=== PATIENT | male | born 1960 | race Caucasian/White ===

== ENCOUNTER → 2017-02-12 | Outpatient (CLI) | payer BC ==
--- NOTE | 2017-02-12 14:13 | PCVCIMAG ---
APPROVED REPORT Exam: Stress Echocardiogram Indication: CAD s/p CABG (01/02/17), Hyperlipidemia Patient Location: Echo lab Stress Nurse: Mary Ellen Porras RN Status: routine Ht: 5 ft 5 in HR: 75 bpm BP: 132/78 mmHg Rhythm: NSR Medical History Medical History: CAD s/p CABG Procedure The patient underwent an Exercise Stress Test using the Jose Protocol. Blood pressure, heart rate, and EKG were monitored. An Echocardiogram was performed by electrical controls technician in four stages in quad fashion. At peak stress, four selected images were obtained and placed side by side with resting images for comparison. Stress Test Details Stress Test: Exercise stress testing was performed using a Jose protocol. HR Resting HR: 75 bpmMax Heart Rate (APMHR): 162 bpm Max HR Achieved: 160 bpmTarget HR (85% APMHR): 137 bpm % of APMHR: 98 Recovery HR: 105 bpm BP Resting BP: 132/78 mmHg Max BP: 160/78 mmHg Recovery BP: 120/76 mmHg ECG Resting ECG: Sinus Rhythm Stress ECG: Sinus Rhythm/ peak exercise rhythm changed to what appears to be a BBB ST Change: Nondiagnostic Arrhythmia: SVT Recovery ECG: BBB continued for 20 min post exercise. Converted to sinus rhythm. Recovery Arrhythmia: BBB continued for 20 min post exercise. Converted to sinus rhythm. Clinical Reason for Termination: Arrhythmias Exercise duration: 12 min 57 sec Highest Stage Achieved: Stage 5: 5.0 mph at 18% grade. Exercise capacity: 17.00 METs Overall Exercise Capacity for Age: Normal Angina Score: None Stress ECG Conclusion The patient exercised according to the JOSE protocol for 12:57 min:s, achieving a work level of Max. METS: 17.00. The resting heart rate of 75 bpm katrin to a maximal heart rate of 162 bpm. This value represents 100% of the maximal, age-predicted heart rate. The resting blood pressure of 132/78 mmHg, katrin to a maximum blood pressure of 160/78 mmHg. The exercise test was stopped due to Arrhythmias. Pre-Stress Echo The resting Echocardiogram showed normal left ventricular contractility with an estimated Ejection Fraction of about >55%. Normal wall motion in all segments on baseline images. Post-Stress Echo The stress Echocardiogram showed normal left ventricular contractility with an estimated Ejection Fraction of about 60-65%. Normal augmentation of wall motion in all segments on post stress images. Conclusion Clinical Response: Non-ischemic Exercise Capacity: Average Stress ECG Response: Equivocal Stress Echo Images: Non-ischemic rate depend bundle No prior study available for comparison. Other Information Study Quality: Adequate <Conclusion> rate depend bundle
== END | disposition home or self-care (01) ==
LOC: PCVCIMAG 11:08
PROVIDERS: ATTEND Internal Medicine Cardiovascular Disease
DX: I45.4 Nonspecific intraventricular block (principal); I25.10 Atherosclerotic heart disease of native coronary artery without angina pectoris; E78.5 Hyperlipidemia, unspecified; Z95.1 Presence of aortocoronary bypass graft; Z79.82 Long term (current) use of aspirin
CPT/HCPCS: 93325; 93351

== ENCOUNTER → 2017-12-20 | Outpatient (CLI) | payer BC ==
--- NOTE | 2017-12-20 17:20 | PCVCIMAG ---
APPROVED REPORT Study performed: 12/20/2017 15:44:21 Exam: Stress Echocardiogram Indication: CAD s/p CABG, Chest pain Patient Location: Echo lab Stress Nurse: Mary Ellen Porras RN Room #: 1 Status: routine Ht: 5 ft 5 in HR: 63 bpm BP: 146/90 mmHg Rhythm: NSR Medical History Medical History: CAD s/p CABG Cardiac Risk Factors: HTN, Hyperlipidemia Previous Cardiac Procedures: CABG Pretest Chest Pain Characteristics: neck pain - unchanged with exertion Exercise History: Physically active Procedure The patient underwent an Exercise Stress Test using the Jose Protocol. Blood pressure, heart rate, and EKG were monitored. An Echocardiogram was performed by quick service technician in four stages in quad fashion. At peak stress, four selected images were obtained and placed side by side with resting images for comparison. Stress Test Details Stress Test: Exercise stress testing was performed using a Jose protocol. HR Resting HR: 63 bpmMax Heart Rate (APMHR): 161 bpm Max HR Achieved: 179 bpmTarget HR (85% APMHR): 136 bpm % of APMHR: 111 Recovery HR: 107 bpm HR response to stress: Normal HR response to stress BP Resting BP: 146/90 mmHg Max BP: 200/92 mmHg Recovery BP: 146/84 mmHg ECG Resting ECG: Sinus Rhythm, NSSTT changes Stress ECG: Sinus Rhythm ST Change: Non-ischemic Arrhythmia: None Recovery ECG: Sinus Rhythm Recovery ST Change: Non-ischemic Recovery Arrhythmia: None Clinical Reason for Termination: Maximal effort Exercise duration: 12 min 55 sec Highest Stage Achieved: Stage 5: 5.0 mph at 18% grade. Exercise capacity: 16.8 METs Overall Exercise Capacity for Age: Excellent Scale: Active No complications. Stress ECG Conclusion The patient exercised according to the JOSE protocol for 12:55 mins; achieving a work level of 16.8 METS. The resting heart rate of 63 bpm katrin to a maximum heart rate of 179 bpm. This value represent 111% of the maximal, age-predicted heart rate. The resting blood pressure of 146/90 mmHg, katrin to a maximum blood pressure of 200/92 mmHg. The exercise test was stopped due to fatigue. Pre-Stress Echo The resting Echocardiogram showed normal left ventricular contractility with an estimated Ejection Fraction of about 55-60%. Normal wall motion in all segments on baseline images. Post-Stress Echo The stress Echocardiogram showed normal left ventricular contractility with an estimated Ejection Fraction of about 65-70%. Normal augmentation of wall motion in all segments on post stress images. Clinical No clinical or ECG evidence for ischemia. Conclusion Clinical Response: Non-ischemic Exercise Capacity: Superior Stress ECG Response: Non-ischemic Stress Echo Images: Non-ischemic No clinical, EKG or echocardiographic evidence for ischemia. No echocardiographic evidence for exercise induced ischemia. Normal stress echocardiogram with maximal exercise stress. <Conclusion> No clinical, EKG or echocardiographic evidence for ischemia. No echocardiographic evidence for exercise induced ischemia. Normal stress echocardiogram with maximal exercise stress.
== END | disposition home or self-care (01) ==
LOC: PCVCIMAG 16:40
PROVIDERS: ATTEND Internal Medicine Cardiovascular Disease
DX: I10 Essential (primary) hypertension (principal); E78.5 Hyperlipidemia, unspecified; I25.10 Atherosclerotic heart disease of native coronary artery without angina pectoris
CPT/HCPCS: 93325; 93351